=== PATIENT | female | born 1980 | race Caucasian/White ===

== ENCOUNTER 2017-06-22 08:28 | Emergency (ER) | payer BC, OTHER ==
[2017-06-22] MEDS ORDERED: IBUPROFEN 600 MG TAB PO STA (08:57)
[2017-06-22] MEDS ORDERED: TRIAMCINOLONE 0.1% CREAM 80 GM TUBE TOPICAL STA (08:57)
--- NOTE | 2017-06-22 09:00 | ED ---
Skin/Abscess/FB HPI - General Chief complaint: Skin/Abscess/Foreign Body Stated complaint: Rash Time Seen by Provider: 06/22/17 08:50 Source: patient, RN notes reviewed Mode of arrival: ambulatory Limitations: no limitations - History of Present Illness Initial comments: This a 36-year-old female presents emergency Department chief complaint of rash. Patient states for the last couple days she's noticed a different antibiotic that swallowing and a red circular bump and states they go away by themselves but new-onset showed up. She states while this was on her left thigh that is painful. She denies any new soaps lotions or detergents no contacts with some her symptoms. She states that she does have animals in the house. She has not tried taking anything or putting other rashes he improves his symptoms. She denies any fevers or chills denies any difficulty swallowing or difficulty breathing. - Related Data Home Medications Medication Instructions Recorded Confirmed No Known Home Medications [No 06/22/17 06/22/17 Known Home Medications] Allergies Allergy/AdvReac Type Severity Reaction Status Date / Time Penicillins Allergy Rash/Hives Verified 06/22/17 08:48 Review of Systems ROS Statement: Those systems with pertinent positive or pertinent negative responses have been documented in the HPI. ROS Other: All systems not noted in ROS Statement are negative. Past Medical History Past Medical History: No Reported History History of Any Multi-Drug Resistant Organisms: None Reported Past Surgical History: Tubal Ligation Past Psychological History: Depression Smoking Status: Current every day smoker Past Alcohol Use History: Occasional Past Drug Use History: None Reported General Exam Limitations: no limitations General appearance: alert, in no apparent distress Head exam: Present: atraumatic, normocephalic, normal inspection Eye exam: Present: normal appearance, PERRL, EOMI. Absent: scleral icterus, conjunctival injection, periorbital swelling Respiratory exam: Present: normal lung sounds bilaterally. Absent: respiratory distress, wheezes, rales, rhonchi, stridor Cardiovascular Exam: Present: regular rate, normal rhythm, normal heart sounds. Absent: systolic murmur, diastolic murmur, rubs, gallop, clicks GI/Abdominal exam: Present: soft, normal bowel sounds. Absent: distended, tenderness, guarding, rebound, rigid Skin exam: Present: warm, dry, intact, normal color, rash (Right bicep region, left thigh there are various erythematous spots with central clearing and pain with palpation) Course Vital Signs 06/22/17 08:37 Temperature 98.9 F Pulse Rate 97 Respiratory 18 Rate Blood Pressure 107/63 O2 Sat by Pulse 100 Oximetry Medical Decision Making - Medical Decision Making 36-year-old female presented for rash. These appear to be some sort of insect bites, there is no evidence of bacterial infection this does not appear to be ALLERGIC. There is no evidence of rash and home aerosols. I did discuss that this appears to be an insect bite that this should be treated with topical she should check her animals at home, her bed and return for any worsening symptoms. Did explain this is not infectious or autoimmune disorder at this time. Disposition Clinical Impression: Insect bite Disposition: HOME SELF-CARE Condition: Stable Instructions: Insect Bite or Sting (ED) Additional Instructions: Please return to the Emergency Department if symptoms worsen or any other concerns. Is patient prescribed a controlled substance at d/c from ED?: No Referrals: Angel Luis Cifuentes DO [Primary Care Provider] - 1-2 days Time of Disposition: 09:00
[2017-06-22 09:41] VITALS: BP 111/71; PULSE 69; RESP 16; TEMP 98.1
== END 2017-06-22 09:40 | disposition home or self-care (01) ==
LOC: EC 08:28
DX: R21 Rash and other nonspecific skin eruption (principal); Z88.0 Allergy status to penicillin; W57.XXXA Bitten or stung by nonvenomous insect and other nonvenomous arthropods, initial encounter
CPT/HCPCS: 99282

== ENCOUNTER 2018-04-24 12:48 | Emergency (ER) | payer BC, OTHER ==
[2018-04-24 13:06] VITALS: BP 103/67; PULSE 76; RESP 18; TEMP 98.3
[2018-04-24] MEDS ORDERED: MORPHINE SULFATE 4 MG/ML SYRINGE IM STA (13:33)
--- NOTE | 2018-04-24 13:37 | ED ---
Back Pain HPI - General Chief Complaint: Back Pain/Injury Stated Complaint: back pain Time Seen by Provider: 04/24/18 13:21 Source: patient, RN notes reviewed Mode of arrival: ambulatory Limitations: no limitations - History of Present Illness Initial Comments: 37-year-old female presents emergency Department chief complaint of low back injury. Patient states she stepped out of the car and felt a pinch in her back. Patient has right low back pain is nonradiating. Patient denies any bowel bladder and Kienitz retention. Denies any abdominal pain. She has tried Motrin and ice with no relief. Patient denies any other complaints currently. - Related Data Previous Rx's Medication Instructions Recorded Cyclobenzaprine [Flexeril] 10 mg PO TID PRN #15 tab 04/24/18 Hydrocodone/Acetaminophen [[place] 1 tab PO Q6HR PRN #12 tab 04/24/18 5-325] predniSONE 50 mg PO DAILY #5 tab 04/24/18 Allergies Allergy/AdvReac Type Severity Reaction Status Date / Time Penicillins Allergy Rash/Hives Verified 04/24/18 13:06 Review of Systems ROS Statement: Those systems with pertinent positive or pertinent negative responses have been documented in the HPI. ROS Other: All systems not noted in ROS Statement are negative. Past Medical History Past Medical History: No Reported History History of Any Multi-Drug Resistant Organisms: None Reported Past Surgical History: Tubal Ligation Past Psychological History: Depression Smoking Status: Current every day smoker Past Alcohol Use History: Occasional Past Drug Use History: None Reported General Exam Limitations: no limitations General appearance: alert, in no apparent distress Head exam: Present: atraumatic, normocephalic, normal inspection ENT exam: Present: normal exam, mucous membranes moist Neck exam: Present: normal inspection, full ROM. Absent: tenderness, meningismus, lymphadenopathy Respiratory exam: Present: normal lung sounds bilaterally. Absent: respiratory distress, wheezes, rales, rhonchi, stridor Cardiovascular Exam: Present: regular rate, normal rhythm, normal heart sounds. Absent: systolic murmur, diastolic murmur, rubs, gallop, clicks GI/Abdominal exam: Present: soft, normal bowel sounds. Absent: distended, tenderness, guarding, rebound, rigid Extremities exam: Present: normal inspection, full ROM, normal capillary refill. Absent: tenderness, pedal edema, joint swelling, calf tenderness Back exam: Present: tenderness, paraspinal tenderness, other (Pain with right straight leg raise). Absent: full ROM, vertebral tenderness Neurological exam: Present: alert, oriented X3, CN II-XII intact Course Vital Signs 04/24/18 13:04 Temperature 98.3 F Pulse Rate 76 Respiratory 18 Rate Blood Pressure 103/67 O2 Sat by Pulse 98 Oximetry Medical Decision Making - Medical Decision Making 37-year-old female presented for low back pain. Patient is lumbar strain. Patient will be treated conservatively at this time. She'll follow-up for recheck and return for any worsening symptoms. Patient has no red flag sy mptoms. Disposition Clinical Impression: Strain of lumbar region Disposition: HOME SELF-CARE Condition: Stable Instructions (If sedation given, give patient instructions): Acute Low Back Pain (ED) Additional Instructions: Please return to the Emergency Department if symptoms worsen or any other concerns. Prescriptions: Cyclobenzaprine [Flexeril] 10 mg PO TID PRN #15 tab PRN Reason: Muscle Spasm Hydrocodone/Acetaminophen [[place] 5-325] 1 tab PO Q6HR PRN #12 tab PRN Reason: Pain predniSONE 50 mg PO DAILY #5 tab Is patient prescribed a controlled substance at d/c from ED?: Yes When asked, does pt state using other controlled substances?: No If prescribed controlled substance>3 days was MAPS reviewed?: Prescribed <3 Days If opioid is for acute pain is fill amount 7 days or less?: Yes If Rx opioid, was Start Talking consent form obtained?: Yes Referrals: Angel Luis Cifuentes DO [Primary Care Provider] - 1-2 days Time of Disposition: 13:37
== END 2018-04-24 14:01 | disposition home or self-care (01) ==
LOC: EC 12:48
DX: S39.012A Strain of muscle, fascia and tendon of lower back, initial encounter (principal); F17.200 Nicotine dependence, unspecified, uncomplicated; Z88.0 Allergy status to penicillin; X58.XXXA Exposure to other specified factors, initial encounter
CPT/HCPCS: 99283; 96372; J2270

== ENCOUNTER 2018-11-05 13:39 | Emergency (ER) | payer OTHER ==
--- NOTE | 2018-11-05 14:13 | ED ---
Back Pain HPI - General Chief Complaint: Back Pain/Injury Stated Complaint: Back pain Time Seen by Provider: 11/05/18 14:00 Source: patient Limitations: no limitations - History of Present Illness Initial Comments: Patient is a 38-year-old female presenting to the emergency Department with complaints of right-sided low back pain times one day. Patient was seen previously for this a few months ago. Patient denies any injuries or trauma to the area. Patient denies any previous surgeries to her back. Patient states he went to her chiropractor yesterday with minimal relief. Patient has no pertinent past medical history and takes no medications. Patient states she tried Motrin at home without relief. Patient denies fever, chills, saddle paresthesias, urinary incontinence. Patient has no other complaints at this time. Upon arrival to ER, vital signs are stable. - Related Data Previous Rx's Medication Instructions Recorded Hydrocodone/Acetaminophen [[place] 1 tab PO Q6HR PRN #12 tab 04/24/18 5-325] predniSONE 50 mg PO DAILY #5 tab 04/24/18 Cyclobenzaprine [Flexeril] 10 mg PO TID PRN #15 tab 11/05/18 Allergies Allergy/AdvReac Type Severity Reaction Status Date / Time Penicillins Allergy Rash/Hives Verified 11/05/18 13:59 Review of Systems ROS Statement: Those systems with pertinent positive or pertinent negative responses have been documented in the HPI. ROS Other: All systems not noted in ROS Statement are negative. Past Medical History Past Medical History: No Reported History History of Any Multi-Drug Resistant Organisms: None Reported Past Surgical History: Tubal Ligation Past Psychological History: Depression Smoking Status: Current every day smoker Past Alcohol Use History: Occasional Past Drug Use History: None Reported General Exam - General Exam Comments Initial Comments: GENERAL: Well-appearing, well-nourished and in no acute distress. HEAD: Atraumatic, normocephalic. EYES: Pupils equal round and reactive to light, extraocular movements intact, sclera anicteric, conjunctiva are normal. ENT: TMs normal, nares patent, oropharynx clear without exudates. Moist mucous membranes. NECK: Normal range of motion, supple without lymphadenopathy or JVD. LUNGS: Breath sounds clear to auscultation bilaterally and equal. No wheezes rales or rhonchi. HEART: Regular rate and rhythm without murmurs, rubs or gallops. ABDOMEN: Soft, nontender, normoactive bowel sounds. No guarding, no rebound. No masses appreciated. : Deferred EXTREMITIES: Normal range of motion, no pitting or edema. No clubbing or cyanosis. Patient had pain with trunk flexion and extension. Patient has full trunk range of motion. Patient has 5 out of 5 strength in upper and lower extremities. Sensation equal and bilateral. There is no pain to palpation in the lumbar area. NEUROLOGICAL: Cranial nerves II through XII grossly intact. Normal speech, normal gait. PSYCH: Normal mood, normal affect. SKIN: Warm, Dry, normal turgor, no rashes or lesions noted. Limitations: no limitations Course Vital Signs 11/05/18 13:57 Temperature 98.3 F Pulse Rate 97 Respiratory 20 Rate Blood Pressure 101/69 O2 Sat by Pulse 99 Oximetry Medical Decision Making - Medical Decision Making Patient is a 38-year-old female presenting with right-sided low back pain. Patient has no injuries or trauma to the area or previous surgeries. Patient was here a few months ago for same complaint. Patient states pain started yesterday. This is most likely a low back strain. Patient is requesting an x- ray. X-ray shows no acute fractures dislocations. Discussed with patient to use Flexeril at nighttime as well as heat and NSAIDs to help with the pain. Patient will follow up with PCP if symptoms persist. Patient agreement this plan of care. Return parameters were discussed with the patient she verbalized understanding. Patient stable for discharge. Case discussed with Dr. osborne. Disposition Clinical Impression: Strain of lumbar region Disposition: HOME SELF-CARE Condition: Stable Instructions (If sedation given, give patient instructions): Acute Low Back Pain (ED) Additional Instructions: Please return to the Emergency Department if symptoms worsen or any other concerns. Use trial of Flexeril as well as NSAIDs and heat and/or ice to the area to help with pain. Gentle stretching. Follow up with PCP or chiropractic if symptoms persist times one week. Prescriptions: Cyclobenzaprine [Flexeril] 10 mg PO TID PRN #15 tab PRN Reason: Muscle Spasm Is patient prescribed a controlled substance at d/c from ED?: No Referrals: Angel Luis Cifuentes DO [Primary Care Provider] - 1-2 days
--- NOTE | 2018-11-05 14:22 | XR ---
EXAMINATION TYPE: XR lumbar spine 2 or 3V DATE OF EXAM: 11/05/2018 COMPARISON: NONE HISTORY: Back pain TECHNIQUE: 3 views FINDINGS: Vertebra have normal alignment. Posterior elements are intact. Disc spaces are fairly siva l. Sacroiliac joints are intact. IMPRESSION: Negative lumbar spine exam. No fracture.
[2018-11-05] MEDS ORDERED: KETOROLAC 60 MG/2 ML VIAL IM STA (14:36)
[2018-11-05 15:11] VITALS: BP 110/78; PULSE 91; RESP 16; TEMP 98.1
== END 2018-11-05 15:10 | disposition home or self-care (01) ==
LOC: EC 13:39
DX: S39.012A Strain of muscle, fascia and tendon of lower back, initial encounter (principal); F17.200 Nicotine dependence, unspecified, uncomplicated; Z88.0 Allergy status to penicillin; X58.XXXA Exposure to other specified factors, initial encounter
CPT/HCPCS: 72100; 99283; 96372; J1885

== ENCOUNTER 2021-02-22 17:30 | Emergency (ER) | payer SELFPAY ==
[2021-02-22 17:40] VITALS: TEMP 99
--- NOTE | 2021-02-22 17:55 | XR ---
EXAMINATION TYPE: XR chest 2V DATE OF EXAM: 02/22/2021 COMPARISON: NONE HISTORY: Short of breath TECHNIQUE: 2 views FINDINGS: Heart and mediastinum are normal. There is some mild infiltrate left lung base. Right lung is clear. There is no heart failure. There are no hilar masses. IMPRESSION: There is some posterior left lower lobe pneumonia. Normal heart.
[2021-02-22] MEDS ORDERED: SODIUM CHLORIDE 0.9% 1,000 ML IV STA (19:14)
[2021-02-22] MEDS ORDERED: DEXAMETHASONE SOD PHOSPHATE 10 MG/ML 1 ML VIAL IVP STA (19:14)
[2021-02-22] MEDS ORDERED: ONDANSETRON 4 MG/2 ML VIAL IVP STA (19:46)
[2021-02-22] MEDS ORDERED: ACETAMINOPHEN TAB 500 MG TAB PO STA (19:46)
[2021-02-22] MEDS ORDERED: ONDANSETRON 4 MG ODT STARTER PACK 2 TAB BTL PO STA (19:47)
--- NOTE | 2021-02-22 19:53 | ED ---
URI HPI - General Chief Complaint: Upper Respiratory Infection Stated Complaint: SOB,N/V Time Seen by Provider: 02/22/21 18:44 Source: patient, RN notes reviewed Mode of arrival: ambulatory Limitations: no limitations - History of Present Illness Initial Comments: Patient is a 40-year-old female that presents to emergency department complaining of Covid symptoms for approximately 9 days. She notes she tested positive at-home on '[place]. She notes she is having continuing symptoms with cough and fever. Shetaking Tylenol Motrin throughout the day. Patient came to the emergency room due to continuing symptoms. Patient was otherwise well-appearing. She denied chest pain shortness of breath headache diarrhea constipation fatigue chills. - Related Data Previous Rx's Medication Instructions Recorded Hydrocodone/Acetaminophen [[place] 1 tab PO Q6HR PRN #12 tab 04/24/18 5-325] predniSONE 50 mg PO DAILY #5 tab 04/24/18 Cyclobenzaprine [Flexeril] 10 mg PO TID PRN #15 tab 11/05/18 Azithromycin [Zithromax] 500 mg PO DAILY #5 tab 02/22/21 Dexamethasone [Decadron] 6 mg PO BID #14 tablet 02/22/21 Allergies Allergy/AdvReac Type Severity Reaction Status Date / Time Penicillins Allergy Rash/Hives Verified 02/22/21 17:40 Review of Systems ROS Statement: Those systems with pertinent positive or pertinent negative responses have been documented in the HPI. ROS Other: All systems not noted in ROS Statement are negative. Past Medical History Past Medical History: No Reported History History of Any Multi-Drug Resistant Organisms: None Reported Past Surgical History: Tubal Ligation Past Psychological History: Depression Smoking Status: Vaper Past Alcohol Use History: Occasional Past Drug Use History: None Reported General Exam Limitations: no limitations General appearance: alert, in no apparent distress, obese Head exam: Present: atraumatic, normocephalic, normal inspection Eye exam: Present: normal appearance, PERRL, EOMI. Absent: scleral icterus, conjunctival injection, periorbital swelling ENT exam: Present: normal exam, mucous membranes moist Neck exam: Present: normal inspection Respiratory exam: Present: normal lung sounds bilaterally. Absent: respiratory distress, wheezes, rales, rhonchi, stridor Cardiovascular Exam: Present: regular rate, normal rhythm, normal heart sounds. Absent: systolic murmur, diastolic murmur, rubs, gallop, clicks Extremities exam: Present: normal inspection, full ROM, normal capillary refill. Absent: tenderness, pedal edema, joint swelling, calf tenderness Neurological exam: Present: alert, oriented X3 Psychiatric exam: Present: normal affect, normal mood Skin exam: Present: warm, dry, intact, normal color. Absent: rash Course Vital Signs 02/22/21 17:37 Temperature 99 F Pulse Rate 106 H Respiratory 20 Rate Blood Pressure 124/66 O2 Sat by Pulse 98 Oximetry Medical Decision Making - Medical Decision Making 40-year-old female complaining of continuing Covid symptoms. Covid test, 1 L normal saline, 10 mg of Decadron ordered. Patient does not meet criteria for monoclonal antibodies. She is with discharge home with antibiotic and steroids at a pharmacy. Case discussed with Dr. Melton. - Lab Data Lab Results 02/22/21 Range/Units 18:45 Coronavirus (PCR) Detected A (Not Detectd) - Radiology Data Radiology results: report reviewed, image reviewed Chest x-ray: There is some posterior left lower lobe pneumonia. Normal heart. Disposition Clinical Impression: COVID Disposition: HOME SELF-CARE Condition: Stable Instructions (If sedation given, give patient instructions): Coronavirus Disease 2019 (COVID-19) Additional Instructions: Please return to the Emergency Department if symptoms worsen or any other concerns. Follow-up with primary care 1-2 days. Take prednisone anabiotic and Zofran as prescribed. Prescriptions: Dexamethasone [Decadron] 6 mg PO BID #14 tablet Is patient prescribed a controlled substance at d/c from ED?: No Referrals: None,Stated [Primary Care Provider] - 1-2 days Time of Disposition: 19:53
[2021-02-22 21:02] VITALS: BP 96/62; PULSE 77; RESP 18
== END 2021-02-22 21:01 | disposition home or self-care (01) ==
LOC: EC 17:30
DX: U07.1 COVID-19 (principal); F17.290 Nicotine dependence, other tobacco product, uncomplicated; Z88.0 Allergy status to penicillin
CPT/HCPCS: 87635; 71046; 99285; 96374; 96375; 96361; J1100; J2405; S0119

== ENCOUNTER 2021-02-24 11:12 | Observation (INO) | payer OTHER ==
[2021-02-24 12:59] LABS: Basophils % (A) 0 %; Eosinophils % (A) 0 %; HCT 44.3 % (34.0-46.0); HGB 14.8 gm/dL (11.4-16.0); Lymphocytes # (A) 0.5 k/uL (1.0-4.8); Lymphocytes % (A) 8 %; MCH 29.8 pg (25.0-35.0); MCHC 33.3 g/dL (31.0-37.0); MCV 89.4 fL (80.0-100.0); Mean Platelet Volume 8.2; Monocytes # (A) 0.2 k/uL (0-1.0); Monocytes % (A) 4 %; Neutrophils # (A) 5.4 k/uL (1.3-7.7); Neutrophils % (A) 87 %; Platelet Count 230 k/uL (150-450); RBC 4.96 m/uL (3.80-5.40); RDW 11.9 % (11.5-15.5); WBC 6.2 k/uL (3.8-10.6)
[2021-02-24 13:07] LABS: Partial Thromboplastin Time 24.2 sec (22.0-30.0); Prothrombin Time 10.3 sec (9.0-12.0)
[2021-02-24 13:13] LABS: ALT 26 U/L (4-34); AST 32 U/L (14-36); African American GFR (CKD) >90 (>60 ml/min/1.73 sqM); Alkaline Phosphatase 63 U/L (38-126); Anion Gap 9 mmol/L; Blood Urea Nitrogen 15 mg/dL (7-17); Calcium 9.3 mg/dL (8.4-10.2); Carbon Dioxide 25 mmol/L (22-30); Chloride 106 mmol/L (98-107); Glucose 130 mg/dL (74-99); Non-African American GFR(CKD) >90 (>60 ml/min/1.73 sqM); Potassium 4.2 mmol/L (3.5-5.1); Sodium 140 mmol/L (137-145); Total Bilirubin 0.8 mg/dL (0.2-1.3); Total Protein 7.2 g/dL (6.3-8.2)
--- NOTE | 2021-02-24 14:00 | ED ---
General Adult HPI - General Chief complaint: Recheck/Abnormal Lab/Rx Stated complaint: covid+, low heart rate & low oxygen Time Seen by Provider: 02/24/21 13:50 Source: patient, RN notes reviewed, old records reviewed Mode of arrival: ambulatory Limitations: no limitations - History of Present Illness Initial comments: Well-appearing 40-year-old female presents to the emergency room with complaints of low heart rate and dizziness. Patient states that she's been monitoring her heart rate at home and it has been as low as 45. She normally does not have a low heart rate. She was recently diagnosed with coronavirus and her symptoms started 11 days ago. She states that she also has chest heaviness that is 4 out of 10. She was prescribed a Z-Albaro and Decadron on February 22. She has been afebrile, no nausea vomiting or diarrhea. No shortness of breath. -: days(s) (1) Location: chest Radiation: non-radiation Severity scale (1-10): 4 Quality: other (heavy) Consistency: constant Improves with: none Worsens with: none Associated Symptoms: other (dizziness) Treatments Prior to Arrival: none - Related Data Home Medications Medication Instructions Recorded Confirmed Ascorbic Acid [Vitamin C] 1,000 mg PO DAILY 02/24/21 02/24/21 Cholecalciferol [Vitamin D3 (25 25 mcg PO DAILY 02/24/21 02/24/21 Mcg = 1000 Iu)] Elderberry Fruit and Flower [Black 1 cap PO DAILY 02/24/21 02/24/21 Elderberry 575 mg Cap] Zinc Gluconate [Zinc] 50 mg PO DAILY 02/24/21 02/24/21 Previous Rx's Medication Instructions Recorded Azithromycin [Zithromax] 500 mg PO DAILY #5 tab 02/22/21 Dexamethasone [Decadron] 6 mg PO BID #14 tablet 02/22/21 Allergies Allergy/AdvReac Type Severity Reaction Status Date / Time Penicillins Allergy Rash/Hives Verified 02/24/21 15:19 Review of Systems ROS Statement: Those systems with pertinent positive or pertinent negative responses have been documented in the HPI. ROS Other: All systems not noted in ROS Statement are negative. Past Medical History Past Medical History: No Reported History History of Any Multi-Drug Resistant Organisms: None Reported Past Surgical History: Tubal Ligation Past Psychological History: Depression Smoking Status: Vaper Past Alcohol Use History: Occasional Past Drug Use History: None Reported - Past Family History Father History Unknown: Yes (Father with hypertension, CAD, brain tumor, mother from suicide, sisters okay, no brothers, 2 daughters, one in the hospital for called the ER evaluation, and the other daughter is home with home recovery) General Exam Limitations: no limitations General appearance: alert, in no apparent distress Head exam: Present: atraumatic, normocephalic, normal inspection Eye exam: Present: normal appearance, EOMI. Absent: scleral icterus, conjunctival injection ENT exam: Present: normal exam, normal oropharynx, mucous membranes moist Neck exam: Present: normal inspection, full ROM. Absent: meningismus, lymphadenopathy Respiratory exam: Present: normal lung sounds bilaterally. Absent: respiratory distress, wheezes, rales, rhonchi, stridor, accessory muscle use Cardiovascular Exam: Present: bradycardia (55), normal heart sounds. Absent: JVD GI/Abdominal exam: Present: soft, normal bowel sounds. Absent: distended, tende rness, guarding, rebound, rigid Back exam: Present: normal inspection, full ROM. Absent: tenderness, CVA tenderness (R), CVA tenderness (L), rash noted Neurological exam: Present: alert, oriented X3 Psychiatric exam: Present: normal affect, normal mood Skin exam: Present: warm, dry, intact, normal color. Absent: rash, cyanosis, diaphoretic Course Vital Signs 02/24/21 02/24/21 02/24/21 12:26 13:48 18:00 Temperature 98.2 F Pulse Rate 63 64 57 L Respiratory 20 18 16 Rate Blood Pressure 97/63 O2 Sat by Pulse 96 95 96 Oximetry EKG Findings - EKG Results: EKG: sinus rhythm EKG shows: bradycardia (Ventricular rate 55, AK interval 0.136, QRS 0.82, QTC 0.422) Medical Decision Making - Medical Decision Making 40-year-old female presents with low heart rate and dizziness since yesterday. She was diagnosed on February 22 with coronavirus and states her symptoms started 11 days ago. She has no medical history. She has been on Z-Albaro and Decadron at that time. Electrolytes and CBC are unremarkable. EKG shows sinus bradycardia at 55. I have been in the room multiple times and seen a heart rate as low as 46 and again at 48. Troponin is negative at 0.012. Patient does not have any cardiac history, no family cardiac history. She does not take any medicine on a daily basis. She is a former smoker. She does have coronavirus which is the likely cause of her chest heaviness however due to the complaints of low heart rate at home and dizziness patient will be brought in for observation. Case was discussed with Dr. Duran. - Lab Data Result diagrams: 02/24/21 12:37 02/24/21 12:37 Lab Results 02/24/21 02/24/21 02/24/21 Range/Units 12:37 12:37 12:37 WBC 6.2 (3.8-10.6) k/uL RBC 4.96 (3.80-5.40) m/uL Hgb 14.8 (11.4-16.0) gm/dL Hct 44.3 (34.0-46.0) % MCV 89.4 (80.0-100.0) fL MCH 29.8 (25.0-35.0) pg MCHC 33.3 (31.0-37.0) g/dL RDW 11.9 (11.5-15.5) % Plt Count 230 (150-450) k/uL MPV 8.2 Neutrophils % 87 % Lymphocytes % 8 % Monocytes % 4 % Eosinophils % 0 % Basophils % 0 % Neutrophils # 5.4 (1.3-7.7) k/uL Lymphocytes # 0.5 L (1.0-4.8) k/uL Monocytes # 0.2 (0-1.0) k/uL Eosinophils # 0.0 (0-0.7) k/uL Basophils # 0.0 (0-0.2) k/uL PT 10.3 (9.0-12.0) sec INR 1.0 (<1.2) APTT 24.2 (22.0-30.0) sec Sodium 140 (137-145) mmol/L Potassium 4.2 (3.5-5.1) mmol/L Chloride 106 (98-107) mmol/L Carbon Dioxide 25 (22-30) mmol/L Anion Gap 9 mmol/L BUN 15 (7-17) mg/dL Creatinine 0.73 (0.52-1.04) mg/dL Est GFR (CKD-EPI)AfAm >90 (>60 ml/min/1.73 sqM) Est GFR (CKD-EPI)NonAf >90 (>60 ml/min/1.73 sqM) Glucose 130 H (74-99) mg/dL Calcium 9.3 (8.4-10.2) mg/dL Total Bilirubin 0.8 (0.2-1.3) mg/dL AST 32 (14-36) U/L ALT 26 (4-34) U/L Alkaline Phosphatase 63 (38-126) U/L Troponin I (0.000-0.034) ng/mL Total Protein 7.2 (6.3-8.2) g/dL Albumin 4.0 (3.5-5.0) g/dL 02/24/21 Range/Units 12:37 WBC (3.8-10.6) k/uL RBC (3.80-5.40) m/uL Hgb (11.4-16.0) gm/dL Hct (34.0-46.0) % MCV (80.0-100.0) fL MCH (25.0-35.0) pg MCHC (31.0-37.0) g/dL RDW (11.5-15.5) % Plt Count (150-450) k/uL MPV Neutrophils % % Lymphocytes % % Monocytes % % Eosinophils % % Basophils % % Neutrophils # (1.3-7.7) k/uL Lymphocytes # (1.0-4.8) k/uL Monocytes # (0-1.0) k/uL Eosinophils # (0-0.7) k/uL Basophils # (0-0.2) k/uL PT (9.0-12.0) sec INR (<1.2) APTT (22.0-30.0) sec Sodium (137-145) mmol/L Potassium (3.5-5.1) mmol/L Chloride (98-107) mmol/L Carbon Dioxide (22-30) mmol/L Anion Gap mmol/L BUN (7-17) mg/dL Creatinine (0.52-1.04) mg/dL Est GFR (CKD-EPI)AfAm (>60 ml/min/1.73 sqM) Est GFR (CKD-EPI)NonAf (>60 ml/min/1.73 sqM) Glucose (74-99) mg/dL Calcium (8.4-10.2) mg/dL Total Bilirubin (0.2-1.3) mg/dL AST (14-36) U/L ALT (4-34) U/L Alkaline Phosphatase (38-126) U/L Troponin I <0.012 (0.000-0.034) ng/mL Total Protein (6.3-8.2) g/dL Albumin (3.5-5.0) g/dL Disposition Clinical Impression: COVID, Symptomatic bradycardia Disposition: ADMITTED IP TO THIS [facility] Condition: Good Decision Date: 02/24/21 Decision Time: 14:57
[2021-02-24] MEDS ORDERED: NALOXONE 0.4 MG/ML 1 ML VIAL IV PRN (14:57)
--- NOTE | 2021-02-24 15:11 | XR ---
EXAMINATION TYPE: XR chest 2V DATE OF EXAM: 02/24/2021 COMPARISON: Chest x-ray 02/22/2021 HISTORY: Bradycardia, hypoxemia and pain TECHNIQUE: Frontal and lateral views of the chest are obtained. FINDINGS: Patchy densities present within the bilateral lungs similar to prior exam. No evident pneu mothorax or pleural effusion. Cardiac mediastinal silhouette is stable. IMPRESSION: Probably for pneumonia
--- NOTE | 2021-02-24 16:50 | P.HPIM ---
History of Present Illness H&P Date: 02/24/21 Chief Complaint: Weakness, recently diagnosed of cocid having palpitations This is a 40-year-old pleasant lady, patient of Dr. Cifuentes. She is healthy, with recently diagnosed covered on 02/22/2021, presenting with her for symptoms on 02/14/2021. Patient was seen in emergency room on the eighth, and was given Zithromax, and dexamethasone. She was subsequently sent home, she did not qualify for the monoclonal antibody, secondary to pre-existing comorbidities. Patient is basically healthy, with a BMI under 35. Otherwise no history of asthma CK D diabetes, CAD, or chronic immunosuppressed state. She now comes back to emergency room, secondary to lightheadedness dizziness, and palpitations. An chest pain Patient has low heart rate when seen, with heart rate as low as 45. They have seen her oxygen to be in a normal state at this time, she is outside the window of any monoclonal, including the antiviral and remdesivir. Patient isn't vaccinated for covered, the 2 daughters are positive for covered, and the covering at home, the symptomatic, and was tested negative for covid The emergency room, heart rate is in the low 40s, without any ectopy, she was admitted for an observation, with consultation to cardiology. Pulse ox, on room air is 96%, patient has shortness of breath on exertion, no conversational dyspnea, no nausea vomiting diarrhea. She comes in with chest pain as well, echocardiogram requested, along with cardiology consultation. Patient will be monitored in the telemetry unit Review of Systems Constitutional: Reports as per HPI, Denies anorexia, Denies chills, Denies chronic headaches, Denies chronic pain, Denies daytime sleepiness, Denies fatigue, Denies fever, Denies lethargy, Denies malaise, Denies night sweats, Denies poor appetite, Denies sweats, Denies weakness, Denies weight gain, Denies weight loss Ears, nose, mouth and throat: Reports as per HPI, Reports nasal congestion, Reports sore throat, Denies headache, Denies odynophagia Cardiovascular: Reports chest pain, Denies dyspnea on exertion, Denies edema, Denies irregular heart beat, Denies orthopnea, Denies palpitations, Denies shortness of breath, Denies syncope Respiratory: Reports as per HPI, Reports cough, Denies cough with sputum, Denies dyspnea, Denies home oxygen, Denies pain on inspiration Gastrointestinal: Reports as per HPI, Denies abdominal pain, Denies belching, Denies bloating, Denies BRBPR, Denies change in bowel habits, Denies coffee ground emesis, Denies constipation, Denies diarrhea, Denies dyspepsia, Denies early satiety, Denies excessive gas, Denies heartburn, Denies hematemesis, Den ies hematochezia, Denies indigestion, Denies jaundice, Denies lactose intolerance, Denies loss of appetite, Denies melena, Denies nausea, Denies vomiting Genitourinary: Reports as per HPI Menstruation: Reports as per HPI Musculoskeletal: Reports as per HPI Integumentary: Reports as per HPI Neurological: Reports as per HPI, Denies aphasia, Denies ataxia, Denies balance difficulties, Denies burning pain, Denies change in mentation, Denies change in smell/taste, Denies change in speech, Denies confusion, Denies convulsions, Denies double vision, Denies gait dysfunction, Denies head injury, Denies headaches, Denies hearing difficulties, Denies lack of coordination, Denies loss of vision, Denies memory loss, Denies migraines, Denies motor disturbance, Denies numbness, Denies paralysis, Denies paresthesias, Denies seizures, Denies sensory deficit, Denies spasticity, Denies syncope, Denies tic, Denies tingling, Denies transient paralysis, Denies tremors, Denies vertigo, Denies weakness, Denies visual changes Psychiatric: Reports as per HPI Endocrine: Reports as per HPI, Denies palpitations Hematologic/Lymphatic: Reports as per HPI, Denies lymphadenopathy Allergic/Immunologic: Reports as per HPI, Denies allergic rhinitis, Denies anaphylaxis, Denies angioedema Past Medical History Past Medical History: No Reported History History of Any Multi-Drug Resistant Organisms: None Reported Past Surgical History: Tubal Ligation Past Psychological History: Depression Smoking Status: Vaper Past Alcohol Use History: Occasional Past Drug Use History: None Reported - Past Family History Father History Unknown: Yes (Father with hypertension, CAD, brain tumor, mother from suicide, sisters okay, no brothers, 2 daughters, one in the hospital for called the ER evaluation, and the other daughter is home with home recovery) Medications and Allergies Home Medications Medication Instructions Recorded Confirmed Type Azithromycin [Zithromax] 500 mg PO DAILY #5 tab 02/22/21 02/24/21 Rx Dexamethasone [Decadron] 6 mg PO BID #14 tablet 02/22/21 02/24/21 Rx Ascorbic Acid [Vitamin C] 1,000 mg PO DAILY 02/24/21 02/24/21 History Cholecalciferol [Vitamin D3 (25 25 mcg PO DAILY 02/24/21 02/24/21 History Mcg = 1000 Iu)] Elderberry Fruit and Flower [Black 1 cap PO DAILY 02/24/21 02/24/21 History Elderberry 575 mg Cap] Zinc Gluconate [Zinc] 50 mg PO DAILY 02/24/21 02/24/21 History Allergies Allergy/AdvReac Type Severity Reaction Status Date / Time Penicillins Allergy Rash/Hives Verified 02/24/21 15:19 Physical Exam Vitals: Vital Signs Temp Pulse Resp BP Pulse Ox 02/24/21 13:48 64 18 95 02/24/21 12:26 98.2 F 63 20 97/63 96 Intake and Output 02/24/21 02/24/21 02/24/21 06:59 14:59 22:59 Other: Weight 86.183 kg - Constitutional General appearance: cooperative, no acute distress - EENT Eyes: EOMI, PERRLA, normal appearance ENT: NA/AT, normal oropharynx - Neck Neck: normal ROM - Respiratory Respiratory: bilateral: CTA, negative: diminished, dullness, rales - Cardiovascular Rhythm: regular Heart sounds: normal: S1, S2 Abnormal Heart Sounds: no systolic murmur, no diastolic murmur, no rub, no S3 Gallop, no S4 Gallop, no click, no other - Gastrointestinal General gastrointestinal: normal bowel sounds, soft - Integumentary Integumentary: decreased turgor, normal - Neurologic Neurologic: CNII-XII intact - Musculoskeletal Musculoskeletal: gait normal, strength equal bilaterally Results CBC & Chem 7: 02/24/21 12:37 02/24/21 12:37 Labs: Abnormal Lab Results - Last 24 Hours (Table) 02/24/21 02/24/21 Range/Units 12:37 12:37 Lymphocytes # 0.5 L (1.0-4.8) k/uL Glucose 130 H (74-99) mg/dL Laboratory Results WBC 6.2 k/uL (3.8-10.6) 02/24/21 12:37 RBC 4.96 m/uL (3.80-5.40) 02/24/21 12:37 Hgb 14.8 gm/dL (11.4-16.0) 02/24/21 12:37 Hct 44.3 % (34.0-46.0) 02/24/21 12:37 MCV 89.4 fL (80.0-100.0) 02/24/21 12:37 MCH 29.8 pg (25.0-35.0) 02/24/21 12:37 MCHC 33.3 g/dL (31.0-37.0) 02/24/21 12: RDW 11.9 % (11.5-15.5) 02/24/21 12:37 Plt Count 230 k/uL (150-450) 02/24/21 12: MPV 8.2 02/24/21 12:37 Neutrophils % 87 % 02/24/21 12:37 Lymphocytes % 8 % 02/24/21 12:37 Monocytes % 4 % 02/24/21 12:37 Eosinophils % 0 % 02/24/21 12: Basophils % 0 % 02/24/21 12:37 Neutrophils # 5.4 k/uL (1.3-7.7) 02/24/21 12:37 Lymphocytes # 0.5 k/uL (1.0-4.8) L 02/24/21 12: Monocytes # 0.2 k/uL (0-1.0) 02/24/21 12:37 Eosinophils # 0.0 k/uL (0-0.7) 02/24/21 12:37 Basophils # 0.0 k/uL (0-0.2) 02/24/21 12:37 PT 10.3 sec (9.0-12.0) 02/24/21 12:37 INR 1.0 (<1.2) 02/24/21 12:37 APTT 24.2 sec (22.0-30.0) 02/24/21 12:37 Sodium 140 mmol/L (137-145) 02/24/21 12:37 Potassium 4.2 mmol/L (3.5-5.1) 02/24/21 12:37 Chloride 106 mmol/L (98-107) 02/24/21 12:37 Carbon Dioxide 25 mmol/L (22-30) 02/24/21 12:37 Anion Gap 9 mmol/L 02/24/21 12:37 BUN 15 mg/dL (7-17) 02/24/21 12:37 Creatinine 0.73 mg/dL (0.52-1.04) 02/24/21 12:37 Est GFR (CKD-EPI)AfAm >90 (>60 ml/min/1.73 sqM) 02/24/21 12:37 Est GFR (CKD-EPI)NonAf >90 (>60 ml/min/1.73 sqM) 02/24/21 12:37 Glucose 130 mg/dL (74-99) H 02/24/21 12:37 Calcium 9.3 mg/dL (8.4-10.2) 02/24/21 12:37 Total Bilirubin 0.8 mg/dL (0.2-1.3) 02/24/21 12:37 AST 32 U/L (14-36) 02/24/21 12:37 ALT 26 U/L (4-34) 02/24/21 12:37 Alkaline Phosphatase 63 U/L (38-126) 02/24/21 12:37 Troponin I <0.012 ng/mL (0.000-0.034) 02/24/21 12:37 Total Protein 7.2 g/dL (6.3-8.2) 02/24/21 12:37 Albumin 4.0 g/dL (3.5-5.0) 02/24/21 12:37 Thrombosis Risk Factor Assmnt - DVT/VTE Prophylaxis DVT/VTE Prophylaxis: Low risk, early ambulation encouraged Assessment and Plan Plan: 1. Acute bradycardia symptomatic, recently diagnosed to have COVID-19, without any evidence of hypoxemia, patient's receiving dexamethasone, and oral Zithromax, for which she is going to complete treatment. Consult to cardiology, to evaluate for any pericarditis. The patient comes in with chest pain. Telemetry monitoring, EKG was done in the emergency room showing sinus bradycardia 55 heart rate, nonspecific ST-T wave abnormality troponin was normal and entry, serial monitoring to be done once the hospital check TSH and an medication 2. Chest pain, with acute COVID 19 without pneumonia and hypoxemia, consult with cardiology, echocardiogram, d-dimer, evaluate for pericarditis, pericardial effusion, and pulmonary emboli 3. Coronary virus, diagnosed on February 22, with signs and symptoms presenting on February 14. Does not qualify for monoclonality by this, not requiring any, did remember at this time, outside the window for him does abuse, no current hypoxemia, no pneumonia, continue to monitor 4. DVT prophylaxis/ GI prophylaxis Lovenox early ambulation oral Pepcid 5. Cramps, left-sided leg , nocturnal, could be related to sleep-related cramps, check for iron, and magnesium TSH Previous smoker
[2021-02-24] MEDS ORDERED: dexAMETHasone 2 MG TAB PO STA (18:04)
[2021-02-24] MEDS: dexAMETHasone 2 MG TAB PO SCH (23:18)
[2021-02-25 03:04] VITALS: RESP 16
[2021-02-25 07:30] LABS: T4, Free (Free Thyroxine) 1.01 ng/dL (0.78-2.19)
[2021-02-25] MEDS ORDERED: NON FORMULARY DRUG (Elderberry Fruit And Flower [Black Elderberry 575 Mg Cap] 1 EACH Capsu PO SCH (09:00)
[2021-02-25] MEDS ORDERED: AZITHROMYCIN 500 MG TAB PO SCH (09:00)
[2021-02-25] MEDS ORDERED: CHOLECALCIFEROL 25 MCG (1000 IU) TABLET PO SCH (09:00)
[2021-02-25] MEDS ORDERED: ASCORBIC ACID 500 MG TAB PO SCH (09:00)
[2021-02-25] MEDS ORDERED: ZINC SULFATE 220 MG CAP PO SCH (09:00)
[2021-02-25 09:20] VITALS: BP 97/63; PULSE 44; TEMP 97.8
[2021-02-25] MEDS: dexAMETHasone 2 MG TAB PO SCH (09:26)
--- NOTE | 2021-02-25 11:55 | ECHOF ---
Referral Reason:CHEST PAIN [facility] COVID MEASUREMENTS -------- HEIGHT: 172.7 cm WEIGHT: 86.2 kg BP: 104/67 RVIDd: 3.5 cm (< 3.3) IVSd: 1.1 cm (0.6 - 1.1) LVIDd: 4.2 cm (3.9 - 5.3) LVPWd: 1.2 cm (0.6 - 1.1) IVSs: 1.4 cm LVIDs: 2.9 cm LVPWs: 1.4 cm LAESV Index (A-L): 24.81 ml/m Ao Diam: 2.7 cm (2.0 - 3.7) AV Cusp: 1.6 cm (1.5 - 2.6) LA Diam: 3.5 cm (2.7 - 3.8) MV EXCURSION: 18.505 mm (> 18.000) MV EF SLOPE: 110 mm/s (70 - 150) EPSS: 0.3 cm MV E Daniel: 0.86 m/s MV DecT: 229 ms MV A Daniel: 0.67 m/s MV E/A Ratio: 1.29 RAP: 5.00 mmHg RVSP: 26.81 mmHg FINDINGS -------- Resting bradycardia (HR<60bpm). This was a technically adequate study. The left ventricular size is normal. Left ventricular wall thickness is normal. Overall left vent ricular systolic function is normal with, an EF between 55 - 60 %. The diastolic filling pattern is normal for the age of the patient 8.75. The right ventricle is mildly enlarged. Normal LA size by volume 22+/-6 ml/m2. The right atrial size is normal. Interatrial and interventricular septum intact. The aortic valve is trileaflet and appears structurally normal. There is no evidence of aortic regu rgitation. There is no evidence of aortic stenosis. Bnwz-ya-gjyhenhy mitral regurgitation is present. Mild tricuspid regurgitation present. There is no evidence of pulmonary hypertension. The right v entricular systolic pressure, as measured by Doppler, is 26.81mmHg. There is no pulmonic regurgitation present. The aortic root size is normal. Normal inferior vena cava with normal inspiratory collapse consistent with estimated right atrial pre ssure of 5 mmHg. There is no pericardial effusion. CONCLUSIONS -------- 1. The left ventricular size is normal. 2. Left ventricular wall thickness is normal. 3. Overall left ventricular systolic function is normal with, an EF between 55 - 60 %. 4. The diastolic filling pattern is normal for the age of the patient 8.75 5. The right ventricle is mildly enlarged. 6. Reht-yn-oyxnvzxw mitral regurgitation is present. 7. Mild tricuspid regurgitation present. PACKING MACHINE FEEDER: Janine Figueroa RDCS
--- NOTE | 2021-02-25 11:56 | P.CRDCN ---
History of Present Illness Consult date: 02/25/21 History of present illness: CHIEF COMPLAINT: Bradycardia HISTORY OF PRESENT ILLNESS: This is a 40-year-old female with a past medical history significant for former nicotine dependence. 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 We have been asked to see the patient in consultation for bradycardia. The patient presented to the hospital due to lightheadedness and dizziness. The patient tested positive for Covid on 02/22/2021. EKG revealed sinus mechanism mostly in the 50s. Her heart rate did drop down to the 40s while she was sleeping. No syncopal episodes. No chest pain or pressure. No shortness of breath. DIAGNOSTICS: EKG reveals sinus bradycardia with no signs of acute ischemia Chest xray possible pneumonia Laboratory data: WBC 6.2. Hemoglobin 14.8. Platelet count 230. D-dimer 0.23. Sodium 140. Potassium 4.2. BUN 15. Creatinine 0.73. Magnesium 2.2. Troponin negative 3. TSH 0.181. Free T4 1 0.01. Current home cardiac medications include none Echocardiogram completed reveals ejection fraction 55-60%, mild to moderate mitral regurgitation, and mild tricuspid regurgitation REVIEW OF SYSTEMS: Thorough review of systems not completed secondary to limited evaluation/examination due to Covid19 PHYSICAL EXAM: Thorough physical exam not completed secondary to limited evaluation/examination due to Covid19 ASSESSMENT: Palpitations Covid 19 Abnormal TSH Former nicotine dependence PLAN: Treatment of abnormal TSH per internal medicine Per Dr. Jacinto, no further inpatient recommendations from a cardiac standpoint. Patient may be discharged home and follow up outpatient. Nurse practitioner note has been reviewed by physician. Signing provider agrees with the documented findings, assessment, and plan of care. Past Medical History Past Medical History: No Reported History Additional Past Medical History / Comment(s): autoimmune disorder- erythema nodosum History of Any Multi-Drug Resistant Organisms: None Reported Past Surgical History: Tubal Ligation Past Anesthesia/Blood Transfusion Reactions: No Reported Reaction Past Psychological History: Depression Smoking Status: Former smoker, Vaper Past Alcohol Use History: Occasional Additional Past Alcohol Use History / Comment(s): quit smoking tobacco 2020 Past Drug Use History: None Reported - Past Family History Father History Unknown: Yes Medications and Allergies Home Medications Medication Instructions Recorded Confirmed Type Azithromycin [Zithromax] 500 mg PO DAILY #5 tab 02/22/21 02/24/21 Rx Dexamethasone [Decadron] 6 mg PO BID #14 tablet 02/22/21 02/24/21 Rx Ascorbic Acid [Vitamin C] 1,000 mg PO DAILY 02/24/21 02/24/21 History Cholecalciferol [Vitamin D3 (25 25 mcg PO DAILY 02/24/21 02/24/21 History Mcg = 1000 Iu)] Elderberry Fruit and Flower [Black 1 cap PO DAILY 02/24/21 02/24/21 History Elderberry 575 mg Cap] Zinc Gluconate [Zinc] 50 mg PO DAILY 02/24/21 02/24/21 History Pnv No.95/Ferrous Fum/Folic AC 1 each PO DAILY #30 tablet 02/25/21 Rx [ Multivitamin Tablet] rOPINIRole HCL [Requip] 0.5 mg PO 1800,2200 #60 tablet 02/25/21 Rx Allergies Allergy/AdvReac Type Severity Reaction Status Date / Time Penicillins Allergy Rash/Hives Verified 02/24/21 15:19 Physical Exam Vitals: Vital Signs Temp Pulse Pulse Resp BP BP Pulse Ox 02/25/21 08:30 97.8 F 44 L 16 97/63 94 L 02/25/21 02:00 98.3 F 43 L 16 104/67 97 02/24/21 23:15 97.8 F 47 L 17 112/61 94 L 02/24/21 22:52 97.1 F L 51 L 16 108/75 93 L 02/24/21 18:00 57 L 16 96 02/24/21 13:48 64 18 95 02/24/21 12:26 98.2 F 63 20 97/63 96 Intake and Output 02/24/21 02/25/21 02/25/21 22:59 06:59 14:59 Other: # Voids 1 Weight 86.183 kg Results 02/24/21 12:37 02/24/21 12:37 Cardiac Enzymes 02/24/21 02/24/21 02/24/21 Range/Units 12:37 12:37 17:17 AST 32 (14-36) U/L Troponin I <0.012 <0.012 (0.000-0.034) ng/mL 02/24/21 02/24/21 Range/Units 19:57 22:28 AST (14-36) U/L Troponin I <0.012 <0.012 (0.000-0.034) ng/mL Coagulation 02/24/21 Range/Units 12:37 PT 10.3 (9.0-12.0) sec APTT 24.2 (22.0-30.0) sec CBC 02/24/21 Range/Units 12:37 WBC 6.2 (3.8-10.6) k/uL RBC 4.96 (3.80-5.40) m/uL Hgb 14.8 (11.4-16.0) gm/dL Hct 44.3 (34.0-46.0) % Plt Count 230 (150-450) k/uL Comprehensive Metabolic Panel 02/24/21 Range/Units 12:37 Sodium 140 (137-145) mmol/L Potassium 4.2 (3.5-5.1) mmol/L Chloride 106 (98-107) mmol/L Carbon Dioxide 25 (22-30) mmol/L BUN 15 (7-17) mg/dL Creatinine 0.73 (0.52-1.04) mg/dL Glucose 130 H (74-99) mg/dL Calcium 9.3 (8.4-10.2) mg/dL AST 32 (14-36) U/L ALT 26 (4-34) U/L Alkaline Phosphatase 63 (38-126) U/L Total Protein 7.2 (6.3-8.2) g/dL Albumin 4.0 (3.5-5.0) g/dL Current Medications Generic Name Dose Route Start Last Admin Trade Name Mary PRN Reason Stop Dose Admin Ascorbic Acid 1,000 mg 02/25/21 09:00 02/25/21 09:26 Ascorbic Acid 500 Mg Tab PO 1,000 mg DAILY JOHN Administration Azithromycin 500 mg 02/25/21 09:00 02/25/21 09:26 Azithromycin 500 Mg Tab PO 02/27/21 09:01 500 mg DAILY JOHN Administration Cholecalciferol 25 mcg 02/25/21 09:00 02/25/21 09:26 Cholecalciferol 25 Mcg (1000 Iu) Tablet PO 25 mcg DAILY JOHN Administration Dexamethasone 6 mg 02/24/21 21:00 02/25/21 09:26 Dexamethasone 2 Mg Tab PO 6 mg BID JOHN Administration Naloxone HCl 0.2 mg 02/24/21 14:57 Naloxone 0.4 Mg/Ml 1 Ml Vial IV Q2M PRN Opioid Reversal Zinc Sulfate 220 mg 02/25/21 09:00 02/25/21 09:26 Zinc Sulfate 220 Mg Cap PO Not Given DAILY JOHN Intake and Output 02/24/21 02/25/21 02/25/21 22:59 06:59 14:59 Other: # Voids 1 Weight 86.183 kg 02/24/21 12:37 02/24/21 12:37
[2021-02-25 12:23] LABS: % Iron Saturation 44.83 (12.00-45.00); Iron 118 ug/dL (50-170); Total Iron Binding Capacity 263 ug/dL (228-460)
--- NOTE | 2021-02-25 16:57 | P.DS ---
Providers Date of admission: 02/24/21 15:47 Expected date of discharge: 02/25/21 Attending physician: Conchita Lucio [facility]: [facility] Course: This is a 40-year-old pleasant lady, patient of Dr. Cifuentes. She is healthy, with recently diagnosed covered on 02/22/2021, presenting with her for symptoms on 02/14/2021. Patient was seen in emergency room on the , and was given Zithromax, and dexamethasone. She was subsequently sent home, she did not qualify for the monoclonal antibody, secondary to pre-existing comorbidities. Patient is basically healthy, with a BMI under 35. Otherwise no history of asthma CK D diabetes, CAD, or chronic immunosuppressed state. She now comes back to emergency room, secondary to lightheadedness dizziness, and palpitations. An chest pain Patient has low heart rate when seen, with heart rate as low as 45. They have seen her oxygen to be in a normal state at this time, she is outside the window of any monoclonal, including the antiviral and remdesivir. Patient isn't vaccinated for covered, the 2 daughters are positive for covered, and the covering at home, the symptomatic, and was tested negative for covid The emergency room, heart rate is in the low 40s, without any ectopy, she was admitted for an observation, with consultation to cardiology. Pulse ox, on room air is 96%, patient has shortness of breath on exertion, no conversational d yspnea, no nausea vomiting diarrhea. She comes in with chest pain as well, echocardiogram requested, along with cardiology consultation. Patient will be monitored in the telemetry unit 02/25: Blood work reveals iron 118, TIBC 263, iron saturation 44.8, transferrin 188. Troponin negative on 3 draws. TSH is 0.181 and free T4 1.01. Patient has been seen by cardiology and may follow up as an outpatient. We will plan for patient to repeat TSH, free T4 and TPO levels in 6 weeks for subclinical thyroiditis. Patient will be started on a vitamin and Requip for home. Patient will be discharged home today in stable condition. DISCHARGE DIAGNOSES 1. Acute bradycardia symptomatic, recently diagnosed to have COVID-19, without any evidence of hypoxemia 2. Chest pain, with acute COVID 19 without pneumonia and hypoxemia 3. Coronavirus, diagnosed on February 22, with signs and symptoms presenting on February 14. 4. Subclinical thyroiditis 5. Cramps, left-sided leg , nocturnal, could be related to sleep-related cramps, check for iron, and magnesium TSH DISCHARGE PLAN Home Greater than 35 minutes was utilized and coordinating patient's discharge. Impression and plan of care have been directed as dictated by the signing physician. Piedad Irvin nurse practitioner acting as scribe for signing physician. Patient Condition at Discharge: Good Plan - Discharge Summary Discharge Rx Participant: Yes New Discharge Prescriptions: New rOPINIRole HCL [Requip] 0.5 mg PO 1800,2200 #60 tablet Pnv No.95/Ferrous Fum/Folic AC [ Multivitamin Tablet] 1 each PO DAILY #30 tablet Continue Zinc Gluconate [Zinc] 50 mg PO DAILY Dexamethasone [Decadron] 6 mg PO BID #14 tablet Azithromycin [Zithromax] 500 mg PO DAILY #5 tab Cholecalciferol [Vitamin D3 (25 Mcg = 1000 Iu)] 25 mcg PO DAILY Ascorbic Acid [Vitamin C] 1,000 mg PO DAILY Elderberry Fruit and Flower [Black Elderberry 575 mg Cap] 1 cap PO DAILY Discharge Medication List Azithromycin [Zithromax] 500 mg PO DAILY #5 tab 02/22/21 [Rx] Dexamethasone [Decadron] 6 mg PO BID #14 tablet 02/22/21 [Rx] Ascorbic Acid [Vitamin C] 1,000 mg PO DAILY 02/24/21 [History] Cholecalciferol [Vitamin D3 (25 Mcg = 1000 Iu)] 25 mcg PO DAILY 02/24/21 [History] Elderberry Fruit and Flower [Black Elderberry 575 mg Cap] 1 cap PO DAILY 02/24/21 [History] Zinc Gluconate [Zinc] 50 mg PO DAILY 02/24/21 [History] Pnv No.95/Ferrous Fum/Folic AC [ Multivitamin Tablet] 1 each PO DAILY #30 tablet 02/25/21 [Rx] rOPINIRole HCL [Requip] 0.5 mg PO 1800,2200 #60 tablet 02/25/21 [Rx] Follow up Appointment(s)/Referral(s): Jose J Young MD [STAFF PHYSICIAN] - 4 Weeks (office will call to schedule follow up ) Angel Luis Cifuentes DO [Primary Care Provider] - 1 Week Ambulatory/Diagnostic Orders: Miscellaneous Lab Order [LAB.AMB] Location: None Selected T4, Free (Free Thyroxine) [LAB.AMB] Location: None Selected TSH, 3rd Generation [LAB.AMB] Location: None Selected Patient Instructions/Handouts: Coronavirus Disease 2019 (COVID-19), Bradycardia (DC) Discharge Disposition: HOME SELF-CARE
== END 2021-02-25 12:22 | disposition home or self-care (01) ==
LOC: EC 11:12 → 1SOBS 15:47 → 3NCARDOBS 22:39
PROVIDERS: ADMIT Family Medicine; ATTEND Family Medicine
DX: U07.1 COVID-19 (principal); R00.1 Bradycardia, unspecified; I08.1 Rheumatic disorders of both mitral and tricuspid valves; L52 Erythema nodosum; E06.9 Thyroiditis, unspecified; R53.1 Weakness; F32.A Depression, unspecified; R07.89 Other chest pain; R25.2 Cramp and spasm; Z88.0 Allergy status to penicillin; Z87.891 Personal history of nicotine dependence; Z98.51 Tubal ligation status; Z82.49 Family history of ischemic heart disease and other diseases of the circulatory system; Z81.8 Family history of other mental and behavioral disorders; Z84.89 Family history of other specified conditions
CPT/HCPCS: 99285; 36415; 93005; 93306; 85379; 84439; 80053; 84443; 83540; 83550; 83735; 84484; 85025; 85610; 85730; 87635; 71046; G0378 ×3; J8540 ×2

== ENCOUNTER 2021-03-08 14:41 | Emergency (ER) | payer OTHER ==
[2021-03-08] MEDS ORDERED: MAG HYDROX/AL HYDROX/SIMETH 30 ML, HYOSCYAMINE ELIXIR 10 ML, LIDOCAINE VISCOUS 2% 10 ML PO STA ×3 (16:55)
[2021-03-08 17:19] VITALS: RESP 18
[2021-03-08 17:39] LABS: ALT 62 U/L (4-34); AST 42 U/L (14-36); African American GFR (CKD) >90 (>60 ml/min/1.73 sqM); Albumin 3.1 g/dL (3.5-5.0); Alkaline Phosphatase 66 U/L (38-126); Amylase 98 U/L (30-110); Anion Gap 4 mmol/L; Blood Urea Nitrogen 16 mg/dL (7-17); Calcium 8.6 mg/dL (8.4-10.2); Carbon Dioxide 26 mmol/L (22-30); Chloride 103 mmol/L (98-107); Glucose 85 mg/dL (74-99); Lipase 161 U/L (23-300); Non-African American GFR(CKD) >90 (>60 ml/min/1.73 sqM); Potassium 4.2 mmol/L (3.5-5.1); Sodium 133 mmol/L (137-145); Total Protein 5.7 g/dL (6.3-8.2)
[2021-03-08 17:42] LABS: Appearance,Urine Clear (Clear); Bacteria,Urine Rare /hpf; Bilirubin,Urine Negative (Negative); Blood,Urine Negative (Negative); Color,Urine Light Yellow; Glucose,Urine (UA) Negative (Negative); Ketones,Urine Negative (Negative); Leukocyte Esterase,Urine Trace (Negative); Nitrite,Urine Negative (Negative); Protein,Urine Negative (Negative); RBC,Urine 1 /hpf (0-5); Specific Gravity,Urine 1.009 (1.001-1.035); Squamous Epithelial Cell,Urine 1 /hpf (0-4); Urobilinogen,Urine <2.0 mg/dL (<2.0); WBC,Urine 2 /hpf (0-5)
[2021-03-08 17:49] LABS: Basophils % (A) 0 %; Eosinophils # (A) 0.1 k/uL (0-0.7); Eosinophils % (A) 1 %; HCT 39.3 % (34.0-46.0); HGB 12.8 gm/dL (11.4-16.0); Lymphocytes # (A) 0.6 k/uL (1.0-4.8); Lymphocytes % (A) 7 %; MCH 29.8 pg (25.0-35.0); MCHC 32.4 g/dL (31.0-37.0); MCV 91.9 fL (80.0-100.0); Mean Platelet Volume 7.4; Monocytes # (A) 0.3 k/uL (0-1.0); Monocytes % (A) 3 %; Neutrophils # (A) 7.4 k/uL (1.3-7.7); Neutrophils % (A) 89 %; Platelet Count 200 k/uL (150-450); RBC 4.28 m/uL (3.80-5.40); RDW 13.7 % (11.5-15.5); WBC 8.4 k/uL (3.8-10.6)
--- NOTE | 2021-03-08 18:01 | XR ---
EXAMINATION TYPE: XR chest 2V DATE OF EXAM: 03/08/2021 COMPARISON: 03/04/2021 HISTORY: Chest pain TECHNIQUE: 2 views FINDINGS: Heart and mediastinum are normal. There is some mild infiltrate or atelectasis at both lung bases. There is no heart failure. There are no hilar masses. There are chest leads. Bony thorax is i ntact. IMPRESSION: There is some mild infiltrate or atelectasis at the lung bases slightly increased compare d to old exam.
--- NOTE | 2021-03-08 18:06 | ED ---
General Adult HPI - General Chief complaint: Chest Pain Stated complaint: Chest/abd pain Time Seen by Provider: 03/08/21 16:43 Source: patient, RN notes reviewed Mode of arrival: ambulatory Limitations: no limitations - History of Present Illness Initial comments: 40-year-old female presents to the emergency Department with complaints of diffuse abdominal bloating and epigastric pain that radiates up into her chest. Patient states the symptoms have been on going for the past 3 days. States she took Pepto-Bismol prior to arrival with no improvement. Also has intermittent episodes of nausea, though none at this time. Does report recent COVID illness. States she was hospitalized two weeks ago and had a full cardiac work-up. Reports dizziness which has been ongoing since she first got sick with COVID. Denies fever, chills, headache, cough, shortness of breath, difficulty breathing, palpitations, constipation, diarrhea, dysuria, and hematuria. - Related Data Home Medications Medication Instructions Recorded Confirmed Ascorbic Acid [Vitamin C] 1,000 mg PO DAILY 02/24/21 03/08/21 Cholecalciferol [Vitamin D3 (25 25 mcg PO DAILY 02/24/21 03/08/21 Mcg = 1000 Iu)] Elderberry Fruit and Flower [Black 1 cap PO DAILY 02/24/21 03/08/21 Elderberry 575 mg Cap] Zinc Gluconate [Zinc] 50 mg PO DAILY 02/24/21 03/08/21 rOPINIRole HCL [Requip] 0.5 mg PO DAILY@1800,2200 03/08/21 03/08/21 Previous Rx's Medication Instructions Recorded Pnv No.95/Ferrous Fum/Folic AC 1 each PO DAILY #30 tablet 02/25/21 [ Multivitamin Tablet] Allergies Allergy/AdvReac Type Severity Reaction Status Date / Time Penicillins Allergy Rash/Hives Verified 03/08/21 17:18 Review of Systems ROS Statement: Those systems with pertinent positive or pertinent negative responses have been documented in the HPI. ROS Other: All systems not noted in ROS Statement are negative. Past Medical History Past Medical History: No Reported History Additional Past Medical History / Comment(s): autoimmune disorder- erythema nodosum History of Any Multi-Drug Resistant Organisms: None Reported Past Surgical History: Tubal Ligation Past Anesthesia/Blood Transfusion Reactions: No Reported Reaction Past Psychological History: Depression Smoking Status: Vaper Past Alcohol Use History: Occasional Past Drug Use History: None Reported - Past Family History Father History Unknown: Yes General Exam Limitations: no limitations (Well-developed, well-nourished female in no acute distress. Initial temperature 98.6, pulse 92, respirations 20, blood pressure 103/67, pulse ox 99% on room air.) General appearance: alert, in no apparent distress Eye exam: Present: normal appearance, PERRL, EOMI. Absent: scleral icterus, conjunctival injection, periorbital swelling ENT exam: Present: normal exam, normal oropharynx, mucous membranes moist Neck exam: Present: normal inspection, full ROM. Absent: tenderness, meningismus, lymphadenopathy Respiratory exam: Present: normal lung sounds bilaterally. Absent: respiratory distress, wheezes, rales, rhonchi, stridor, chest wall tenderness Cardiovascular Exam: Present: regular rate, normal rhythm, normal heart sounds. Absent: systolic murmur, diastolic murmur GI/Abdominal exam: Present: soft, tenderness (mild epigastric tenderness upon palpation), normal bowel sounds. Absent: distended, guarding, rebound, rigid Neurological exam: Present: altered, oriented X3, normal gait Expanded Patient oriented to: Present: person, place, time Speech: Present: fluid speech Cranial nerves: EOM's Intact: Normal, Nystagmus: Normal, Facial Palsy with Forehead Movement: Normal Motor strength exam: RUE: 5, LUE: 5, RLE: 5, LLE: 5 Eye Response: (4) open spontaneously Motor Response: (6) obeys commands Verbal Response: (5) oriented Psychiatric exam: Present: normal affect, normal mood Skin exam: Present: warm, dry, intact, normal color. Absent: rash Course Vital Signs 03/08/21 03/08/21 03/08/21 14:47 17:18 18:07 Temperature 98.6 F Pulse Rate 92 99 84 Respiratory 20 18 18 Rate Blood Pressure 103/67 101/77 104/69 O2 Sat by Pulse 99 99 98 Oximetry 03/08/21 03/08/21 03/08/21 19:10 20:32 21:03 Temperature 98.2 F Pulse Rate 91 90 91 Respiratory 18 18 18 Rate Blood Pressure 93/69 99/65 94/66 O2 Sat by Pulse 99 99 99 Oximetry - Reevaluation(s) Reevaluation #1: 03/08/21 18:05 Upon re-evaluation, patient complains of intermittent numbness and tingling to bilateral plantar surfaces that occurs while seated. Also states she is experiencing muscle twitching in her face. States she continues to be dizzy. Patient is observed to be moving freely and tolerating oral intake without difficulty. Discussed the option of 500ml fluid bolus; patient is agreeable. 03/08/21 20:00 Patient reassessed prior to departure. States she is feeling better, however, did have a low blood pressure reading therefore was rechecked and will be repeated again in 15 minutes. 03/08/21 20:20 Blood pressure readings consistently in the 90s/40-50s. Patient able to ambulate to bathroom without dizziness or lightheaded feeling. Tolerating oral intake without difficulty. Blood pressure 92/47, heart rate 83. Patient will be discharged home with instructions to check her blood pressure and record it on a log to take with her when she follows up with her PCP and farrowing manager as scheduled. Strict return parameters were discussed with patient. She verbalizes understanding. Medical Decision Making - Medical Decision Making 40-year-old female with a past medical history of recent Covid illness and hos pitalization for symptomatic bradycardia presents to the emergency department for evaluation of abdominal bloating and epigastric discomfort that radiates up into the chest. Patient has a myriad of additional complaints which appear to be recurrent. Upon exam, patient is well-appearing and in no acute distress. Vital signs are stable, though blood pressure is soft with a SBP in the 90s. She is afebrile with a room air saturation of 95% or greater. Physical exam findings are unremarkable. Laboratory studies were obtained and show mild hyponatremia with a sodium of 133. Troponin is negative. EKG shows normal sinus rhythm with a ventricular rate 80s. Chest x-ray shows mild persistent infiltrate or atelectasis at the lung bases which is likely to be residual from her recent Covid illness. Patient is not experiencing any shortness of breath or difficulty breathing. She is tolerating oral intake without difficult. She was given 500 mL of IV fluids and a GI cocktail with improvement. Patient is able to ambulate without difficulty. Discussed parameters of normal blood pre ssure and heart rate. Patient does have a home cuff therefore was instructed to log blood pressure readings at various times throughout the day and take them with her to her scheduled follow-up appointment with her PCP on Wednesday. She is also scheduled to see the farrowing manager in 2 weeks. Strict return parameters were discussed. A shunt and spouse verbalize understanding and agreement with this plan. This patient's care was discussed with my attending Dr. Hein. - Lab Data Result diagrams: 03/08/21 17:03/08/21 17:01 Lab Results 03/08/21 03/08/21 03/08/21 Range/Units 17: 17: 17:01 WBC 8.4 (3.8-10.6) k/uL RBC 4.28 (3.80-5.40) m/uL Hgb 12.8 (11.4-16.0) gm/dL Hct 39.3 (34.0-46.0) % MCV 91.9 (80.0-100.0) fL MCH 29.8 (25.0-35.0) pg MCHC 32.4 (31.0-37.0) g/dL RDW 13.7 (11.5-15.5) % Plt Count 200 (150-450) k/uL MPV 7.4 Neutrophils % 89 % Lymphocytes % 7 % Monocytes % 3 % Eosinophils % 1 % Basophils % 0 % Neutrophils # 7.4 (1.3-7.7) k/uL Lymphocytes # 0.6 L (1.0-4.8) k/uL Monocytes # 0.3 (0-1.0) k/uL Eosinophils # 0.1 (0-0.7) k/uL Basophils # 0.0 (0-0.2) k/uL Sodium 133 L (137-145) mmol/L Potassium 4.2 (3.5-5.1) mmol/L Chloride 103 (98-107) mmol/L Carbon Dioxide 26 (22-30) mmol/L Anion Gap 4 mmol/L BUN 16 (7-17) mg/dL Creatinine 0.54 (0.52-1.04) mg/dL Est GFR (CKD-EPI)AfAm >90 (>60 ml/min/1.73 sqM) Est GFR (CKD-EPI)NonAf >90 (>60 ml/min/1.73 sqM) Glucose 85 (74-99) mg/dL Calcium 8.6 (8.4-10.2) mg/dL Total Bilirubin 1.0 (0.2-1.3) mg/dL AST 42 H (14-36) U/L ALT 62 H (4-34) U/L Alkaline Phosphatase 66 (38-126) U/L Troponin I <0.012 (0.000-0.034) ng/mL Total Protein 5.7 L (6.3-8.2) g/dL Albumin 3.1 L (3.5-5.0) g/dL Amylase 98 (30-110) U/L Lipase 161 (23-300) U/L Urine Color Urine Appearance (Clear) Urine pH (5.0-8.0) Ur Specific Hurley (1.001-1.035) Urine Protein (Negative) Urine Glucose (UA) (Negative) Urine Ketones (Negative) Urine Blood (Negative) Urine Nitrite (Negative) Urine Bilirubin (Negative) Urine Urobilinogen (<2.0) mg/dL Ur Leukocyte Esterase (Negative) Urine RBC (0-5) /hpf Urine WBC (0-5) /hpf Ur Squamous Epith Cells (0-4) /hpf Urine Bacteria (None) /hpf 03/08/21 Range/Units 17:24 WBC (3.8-10.6) k/uL RBC (3.80-5.40) m/uL Hgb (11.4-16.0) gm/dL Hct (34.0-46.0) % MCV (80.0-100.0) fL MCH (25.0-35.0) pg MCHC (31.0-37.0) g/dL RDW (11.5-15.5) % Plt Count (150-450) k/uL MPV Neutrophils % % Lymphocytes % % Monocytes % % Eosinophils % % Basophils % % Neutrophils # (1.3-7.7) k/uL Lymphocytes # (1.0-4.8) k/uL Monocytes # (0-1.0) k/uL Eosinophils # (0-0.7) k/uL Basophils # (0-0.2) k/uL Sodium (137-145) mmol/L Potassium (3.5-5.1) mmol/L Chloride (98-107) mmol/L Carbon Dioxide (22-30) mmol/L Anion Gap mmol/L BUN (7-17) mg/dL Creatinine (0.52-1.04) mg/dL Est GFR (CKD-EPI)AfAm (>60 ml/min/1.73 sqM) Est GFR (CKD-EPI)NonAf (>60 ml/min/1.73 sqM) Glucose (74-99) mg/dL Calcium (8.4-10.2) mg/dL Total Bilirubin (0.2-1.3) mg/dL AST (14-36) U/L ALT (4-34) U/L Alkaline Phosphatase (38-126) U/L Troponin I (0.000-0.034) ng/mL Total Protein (6.3-8.2) g/dL Albumin (3.5-5.0) g/dL Amylase (30-110) U/L Lipase (23-300) U/L Urine Color Light Yellow Urine Appearance Clear (Clear) Urine pH 7.0 (5.0-8.0) Ur Specific Hurley 1.009 (1.001-1.035) Urine Protein Negative (Negative) Urine Glucose (UA) Negative (Negative) Urine Ketones Negative (Negative) Urine Blood Negative (Negative) Urine Nitrite Negative (Negative) Urine Bilirubin Negative (Negative) Urine Urobilinogen <2.0 (<2.0) mg/dL Ur Leukocyte Esterase Trace H (Negative) Urine RBC 1 (0-5) /hpf Urine WBC 2 (0-5) /hpf Ur Squamous Epith Cells 1 (0-4) /hpf Urine Bacteria Rare H (None) /hpf - EKG Data EKG shows normal: sinus rhythm Rate: normal EKG Comments: EKG was obtained at 1701 and shows normal sinus rhythm. Ventricular rate 88, MO interval 138, QRS duration 84, QT/QTC 344/416. Interpretation is abnormal ECG. Appears unchanged when compared with previous EKGs. - Radiology Data Radiology results: report reviewed, image reviewed Two-view chest x-ray was obtained. Report was reviewed in its entirety. Impression per Dr. Allen is there is some mild infiltrate or atelectasis at the lung bases slightly increased compared to old exam. Disposition Clinical Impression: Epigastric pain, Dizziness, nonspecific Disposition: HOME SELF-CARE Condition: Stable Instructions (If sedation given, give patient instructions): Epigastric Pain (ED) Additional Instructions: Minimize your use of Motrin/Ibuprofen/Advil/Aleve. If you do need to take it, make sure you have food in your stomach. Treat minor discomfort or fever with Tylenol. Avoid spicy, irritating, greasy, and fatty foods. Increase fluids (water or electrolyte solutions preferably). Please keep your follow up appointment with Dr. Cifuentes as scheduled. Return to the Emergency Department with any new, worsening, or concerning symptoms. Is patient prescribed a controlled substance at d/c from ED?: No Referrals: Angel Luis Cifuentes DO [Primary Care Provider] - 1-2 days Time of Disposition: 18:52
[2021-03-08 19:11] VITALS: TEMP 98.2
[2021-03-08] MEDS ORDERED: SODIUM CHLORIDE 0.9% 500 ML 500 ML IV STA (19:27)
[2021-03-08 21:05] VITALS: BP 94/66; PULSE 91
== END 2021-03-08 21:03 | disposition home or self-care (01) ==
LOC: EC 14:41
DX: R10.13 Epigastric pain (principal); R42 Dizziness and giddiness; Z88.0 Allergy status to penicillin; F17.290 Nicotine dependence, other tobacco product, uncomplicated
CPT/HCPCS: 36415; 71046; 80053; 81001; 82150; 83690; 84484; 85025; 93005; 96360; 99284

== ENCOUNTER → 2021-03-20 | Outpatient (CLI) | payer OTHER ==
[2021-03-20 21:02] LABS: African American GFR (CKD) 113.2 (60.0-200.0); Anion Gap 11.4 mmol/L (10.00-18.00); BUN/Creat Ratio 21.22 Ratio (12.00-20.00); Calcium 9.4 mg/dL (8.7-10.3); Carbon Dioxide 24.2 mmol/L (20.0-27.5); Non-African American GFR(CKD) 97.7 (60.0-200.0)
== END | disposition home or self-care (01) ==
LOC: LABWHC1 14:36
PROVIDERS: ATTEND Internal Medicine Cardiovascular Disease
DX: R06.02 Shortness of breath (principal)
CPT/HCPCS: 36415; 80048; 83880; 84443

== ENCOUNTER → 2021-07-11 | Outpatient (CLI) | payer OTHER ==
--- NOTE | 2021-07-29 19:33 | EM ---
EVENT MONITOR EVENT MONITOR REPORT: Several rhythm strips were available. Almost all of these were sinus tachycardia. There is no evidence of any significant ventricular or supraventricular arrhythmias. There is no evidence of any bradyarrhythmia. Predominantly sinus rhythm was noted, and on several occasions sinus tachycardia was noted. When patient complained of palpitations or skipped beats, she was in a sinus mechanism with some artifact. There is no evidence of any atrial fibrillation, SVT or any ventricular arrhythmias. There is no evidence of any bradyarrhythmia. FINAL IMPRESSION: Predominant rhythm strips are sinus and sinus tachycardia. No significant arrhythmia noted. MMODL / IJN: [id number] /
== END | disposition home or self-care (01) ==
LOC: RADECHMAIN 08:07
PROVIDERS: ATTEND Family Medicine
DX: I49.9 Cardiac arrhythmia, unspecified (principal)
CPT/HCPCS: 93270

== ENCOUNTER → 2023-08-11 | Outpatient (CLI) | payer OTHER ==
[2023-08-11 22:06] LABS: C-Peptide 2.91 ng/mL (0.81-3.85)
== END | disposition home or self-care (01) ==
LOC: LABWHC1 09:39
PROVIDERS: ATTEND Family Medicine
DX: R73.9 Hyperglycemia, unspecified (principal)
CPT/HCPCS: 36415; 82947; 83036; 83525; 84681

== ENCOUNTER → 2023-08-11 | Outpatient (CLI) | payer OTHER ==
--- NOTE | 2023-08-11 10:35 | XR ---
EXAMINATION TYPE: XR foot complete LT DATE OF EXAM: 08/11/2023 10:18 AM CLINICAL INDICATION:Female, 42 years old with history of M79.672 PAIN IN LEFT FOOT; COMPARISON: None TECHNIQUE: XR foot complete LT examined in the AP, oblique, and lateral projections. FINDINGS: No evidence of any acute osseous pathology. No evidence of soft tissue swelling. IMPRESSION: 1. No evidence of acute fracture.
== END | disposition home or self-care (01) ==
LOC: RADXRMAIN 10:03
PROVIDERS: ATTEND Family Medicine
DX: M79.672 Pain in left foot (principal)